=== PATIENT | female | born 1980 | race Caucasian/White ===

== ENCOUNTER 2020-08-23 09:55 | Inpatient (IN) | payer OTHER ==
[~2020-08-23] VITALS: Ht 157 cm; Wt 97.5 kg
[~2020-08-23 09:55] MED LIST: IBUP-2071 PO; PREN1TAB26 PO
[2020-08-23] MEDS ORDERED: METOCLOPRAMIDE HCL 5 MG/ML 2 ML VIAL IVP PRN (10:15)
[2020-08-23] MEDS ORDERED: RINGERS SOLUTION,LACTATED 1,000 ML IV PRN (10:15)
[2020-08-23] MEDS ORDERED: CITRIC ACID/SODIUM CITRATE 30 ML SOLUTION UDCUP PO PRN (10:15)
[2020-08-23] MEDS ORDERED: RINGERS SOLUTION,LACTATED 1,000 ML IV SCH (10:15)
[2020-08-23 10:43] LABS: COVID AG,FIA SOURCE NASOPHARYNGEAL
[2020-08-23 11:41] LABS: BASOPHILS % (AUTO) 0.2 % (0.0-2.0); EOSINOPHILS % (AUTO) 0.9 % (1.0-6.0); HEMATOCRIT 34.1 % (36-46); HEMOGLOBIN 11.1 g/dL (12.0-16.0); LYMPHOCYTES # (AUTO) 1.7 K/uL (1.0-4.8); LYMPHOCYTES % (AUTO) 18.3 % (22.0-44.0); MEAN CORPUSCULAR HEMOGLOBIN 26.4 pg (26.0-34.0); MEAN CORPUSCULAR HGB CONC 32.7 G/dL (31.0-37.0); MEAN CORPUSCULAR VOLUME 81 fL (80-100); MONOCYTES # (AUTO) 0.6 K/uL (0.1-1.0); MONOCYTES % (AUTO) 6.1 % (2.0-9.0); NEUTROPHILS # (AUTO) 7.1 K/uL (1.8-7.7); NEUTROPHILS % (AUTO) 74.5 % (40.0-70.0); PLATELET COUNT (AUTO)-OB 144 K/uL (150-450); RED BLOOD CELL COUNT(AUTO) 4.22 MIL/uL (4.00-5.20); RED CELL DISTRIBUTION WIDTH 16.7 % (11.5-14.5)
[2020-08-23] MEDS ORDERED: MORPHINE SULFATE/PF 1 MG/ML 10 ML AMP ONE (11:47)
[2020-08-23] MEDS ORDERED: FentaNYL CITRATE-PF 100 MCG/2 ML VIAL ONE (11:47)
[2020-08-23] MEDS ORDERED: ACETAMINOPHEN 1000 MG/ISO-OSM 100 ML IV ONE (11:47)
[2020-08-23] MEDS ORDERED: BUPIVACAINE HCL/DEX-WATER/PF 0.75% 2 ML AMP ONE (11:48)
[2020-08-23 12:00] VITALS: BP 95/62
[2020-08-23] MEDS ORDERED: ONDANSETRON HCL 4 MG/2 ML VIAL IVP PRN ×2 (12:15)
[2020-08-23] MEDS ORDERED: FentaNYL CITRATE-PF 100 MCG/2 ML VIAL IVP PRN ×2 (12:15)
[2020-08-23] MEDS ORDERED: NALOXONE HCL 0.4 MG/ML VIAL IVP PRN (12:15)
[2020-08-23] MEDS ORDERED: NALBUPHINE HCL 10 MG/ML VIAL IVP PRN ×2 (12:15)
[2020-08-23] MEDS ORDERED: DiphenhydrAMINE HCL 50 MG/ML VIAL IVP PRN (12:15)
[2020-08-23] MEDS ORDERED: MORPHINE SULFATE 10 MG/ML SYRINGE IVP PRN (12:15)
[2020-08-23] MEDS ORDERED: ACETAMINOPHEN/CODEINE 300-30 MG TABLET PO PRN (13:45)
[2020-08-23] MEDS ORDERED: LANOLIN 7 GM OINTMENT TP PRN (13:45)
[2020-08-23] MEDS: DEXTROSE 5%-0.45% SODIUM CHL 1,000 ML IV SCH ×2 (16:10→20:36)
[2020-08-23] MEDS: KETOROLAC TROMETHAMINE 30 MG/ML VIAL IVP SCH (19:01)
[2020-08-23] MEDS ORDERED: OXYGEN THERAPY IH SCH ×3 (20:00)
[2020-08-23] MEDS: ACETAMINOPHEN 1000 MG/ISO-OSM 100 ML IV SCH (20:36)
[2020-08-24] MEDS: KETOROLAC TROMETHAMINE 30 MG/ML VIAL IVP SCH (00:33)
[2020-08-24] MEDS: DEXTROSE 5%-0.45% SODIUM CHL 1,000 ML IV SCH ×2 (00:34→04:12)
[2020-08-24] MEDS: ACETAMINOPHEN 1000 MG/ISO-OSM 100 ML IV SCH (04:12)
[2020-08-24] MEDS ORDERED: EPHEDrine SULFATE 50 MG/ML VIAL IM ONE (05:39)
[2020-08-24] MEDS ORDERED: DEXAMETHASONE SOD PHOS 4 MG/ML VIAL IVP ONE (05:39)
[2020-08-24] MEDS ORDERED: ONDANSETRON HCL 4 MG/2 ML VIAL IVP ONE (05:39)
[2020-08-24] MEDS ORDERED: OXYTOCIN 10 UNITS/ML VIAL IM ONE (05:39)
[2020-08-24] MEDS ORDERED: KETOROLAC TROMETHAMINE 60 MG/2 ML VIAL IM ONE (05:39)
[2020-08-24] MEDS: IBUPROFEN 800 MG TABLET PO SCH ×3 (06:47→18:49)
[2020-08-24] MEDS: MAGNESIUM HYDROXIDE SUSPENSION 30 ML UDCUP PO SCH ×2 (08:51→20:52)
[2020-08-25] MEDS: IBUPROFEN 800 MG TABLET PO SCH ×3 (00:49→16:23)
[2020-08-25] MEDS: MAGNESIUM HYDROXIDE SUSPENSION 30 ML UDCUP PO SCH ×2 (09:00→21:00)
[2020-08-25] MEDS: ACETAMINOPHEN/CODEINE 300-30 MG TABLET PO PRN ×2 (16:23→21:06)
[2020-08-26] MEDS: IBUPROFEN 800 MG TABLET PO SCH ×2 (03:50→08:47)
== END 2020-08-26 10:15 | disposition home or self-care (01) | DRG 788 ==
LOC: OBSVTOIN 09:55 → 4S 09:55 → NSY 14:10 → 4S 14:11
PROVIDERS: ADMIT Obstetrics & Gynecology; ATTEND Obstetrics & Gynecology
PROC: 10D00Z1 Extraction of Products of Conception, Low, Open Approach (ICD-10-PCS; principal; 2020-08-23)
DX: O34.211 Maternal care for low transverse scar from previous cesarean delivery (principal); Z20.828 Contact with and (suspected) exposure to other viral communicable diseases; Z3A.39 39 weeks gestation of pregnancy; Z37.0 Single live birth
CPT/HCPCS: 86850; 86900; 86901; 87081; 87426; J0131; J0690; J1100; J1885; J2405; J2590; J2765; J3010; J3490; J7120